=== PATIENT | female | born 2000 | race Caucasian/White ===

== ENCOUNTER 2024-09-08 09:23 | Outpatient (CLI) | payer BC, SELFPAY | END 2024-09-08 09:24 | disposition home or self-care (01) | PROVIDERS: Visit Provider Nurse Practitioner Family | DX: N30.00 Acute cystitis without hematuria (principal) | CPT/HCPCS: 87086 ==

== ENCOUNTER 2024-11-04 17:29 | Outpatient (CLI) | payer BC, SELFPAY | END 2024-11-04 17:30 | disposition home or self-care (01) | LOC: NFLDREF 11-09 02:05 | DX: R30.0 Dysuria (principal) | CPT/HCPCS: 87086 ==

== ENCOUNTER 2024-11-05 10:58 | Emergency (ER) | payer BC, SELFPAY ==
[2024-11-05 11:13] VITALS: BP 118/76; PULSE 99; RESP 16; TEMP 36.7; O2SAT 100; BMI 21.1
--- NOTE | 2024-11-05 11:35 | ED_ITS ---
HPI - General Adult General Date Seen: 11/05/24 Chief complaint: Urogenital Problems, Female Stated complaint: UTI symptoms Time Seen by Provider: 11/05/24 11:01 History of Present Illness HPI narrative: Patient is 24-year-old generally healthy young woman here with dysuria. She notes that she has had very frequent episodes of dysuria and bladder spasms or tingling for a number of years. Over the last year alone she estimates she has had 10-15 episodes. She has been on antibiotics many times, she usually uses virtual visits to obtain antibiotics. Yesterday, she decided that she was tired of being on antibiotics so she went into Urgent Care. Her urinalysis was negative. She also recently went to see her primary care doctor to discuss these symptoms, and her primary care doctor thought it was perhaps interstitial cystitis, so she had done some dietary changes, had eliminated caffeine, alcohol, but really did not notice any change in her symptoms. As her urine yesterday was unremarkable, no medications were prescribed aside from recommendations to use azo. She has ongoing symptoms today. She does note that these symptoms started in the afternoon on a day when she had intercourse. She has had 1 sexual partner, male, and does not have any concerns about exposures to STIs. She has been tested previously for bacterial vaginosis and yeast although she does not believe she has had any test for that in the past year. She does not believe that the symptoms she has had more recently are consistent with bacterial vaginosis or yeast. She has not had any discharge. She has not had any abdominal pain aside from these bladder spasms. She has not had fevers or systemic symptoms. She does believe that over the past several months, the symptoms have coincided with the onset of her period, and she is wondering if they may be have to do with her hormones, she was wondering if her estrogen levels could be tested today. She does live here locally although her health care is through [facility] in [place]. She has had a couple of normal Pap smears since age 22. Related Data Home Medications ?Medication ?Instructions ?Recorded ?Confirmed levonorgestrel 0.15 mg-ethinyl 1 tab PO QDAY 09/08/24 11/04/24 estradiol 0.03 mg tablet (Altavera (28)) Previous Rx's ?Medication ?Instructions ?Recorded nitrofurantoin macrocrystal 50 mg 50 mg PO Q24H PRN #20 caps 11/05/24 capsule Allergies Allergy/AdvReac Type Severity Reaction Status Date / Time nitrofurantoin Allergy Rash Verified 11/04/24 17:09 Review of Systems Status of ROS: Reports: 6 or more systems reviewed and unremarkable except as noted in History and below Exam Narrative: Exam Narrative: Vital signs reviewed In general, alert, well-appearing woman. Abdomen: Soft nontender. Pelvic: Deferred. Skin: Warm dry well perfused. Const: Vital Signs, click to edit/add: Vital Signs - 24 hr 11/05/24 11:13 Temperature 98.0 F Pulse Rate [Pulse Oximeter] 99 Respiratory Rate 16 Blood Pressure [Ri ght Upper Arm] 118/76 Pulse Oximetry 100 Oxygen Delivery Me thod Room Air Course Course ED Course: For today, will obtain a UA and make sure it does not look significantly worse than yesterday. Will also obtain a vaginitis panel. Reviewed with her that hormonal testing is not something we can do in the ER, and honestly is unlikely to be of any significant benefit. Interstitial cystitis would certainly be on the differential although with the cyclical nature that she is describing perhaps a little bit less likely. I think she would benefit at this point from follow-up with [facility]. Urinalysis shows 5-10 white blood cells today, up to 2 yesterday. As such, with ongoing symptoms I think it is reasonable to treat her today. Her vaginitis swab is negative. She has had Macrobid multiple times in the past, says at 1 time previously she had had hives, but has had it since then without difficulty. I am going to prescribe Macrobid for treatment today and also going to give her nitrofurantoin 50 mg tablets to use after intercourse as a trial to see if that improves her symptoms. I have also recommended woman's health follow-up for her for further evaluation if this does not help. Return any time for worsening symptoms such as flank pain, fevers, vomiting etc.. Vital Signs Vital signs: Initial Vital Signs Temperature 98.0 F 11/05/24 11:13 Temperature Source Temporal Artery Scan 11/05/24 11:13 Pulse Rate 99 11/05/24 11:13 Respiratory Rate 16 11/05/24 11:13 Blood Pressure 118/76 11/05/24 11:13 Blood Pressure Mean 90 11/05/24 11:13 Blood Pressure Position Sitting 11/05/24 11:13 Pulse Oximetry 100 11/05/24 11:13 Oxygen Delivery Method Room Air 11/05/24 11:13 Vital Signs Temperature 98.0 F 11/05/24 11:13 Pulse Rate 99 11/05/24 11:13 Respiratory Rate 16 11/05/24 11:13 Blood Pressure 118/76 11/05/24 11:13 Pulse Oximetry 100 11/05/24 11:13 Oxygen Delivery Method Room Air 11/05/24 11:13 Temperature 98.0 F 11/05/24 11:13 Pulse Rate 99 11/05/24 11:13 Respiratory Rate 16 11/05/24 11:13 Blood Pressure 118/76 11/05/24 11:13 Pulse Oximetry 100 11/05/24 11:13 Oxygen Delivery Method Room Air 11/05/24 11:13 Medical Decision Making Lab Data Labs: Lab Results 11/05/24 11/05/24 11/05/24 Range/Units 11:33 11:40 11:45 Urine Color Yellow (Yellow) Urine Appearance Clear (Clear) Urine pH 7.0 (5.0-8.5) Ur Specific Shirley 1.010 (1.000-1.030) Urine Protein Negative (Negative) Urine Glucose (UA) Negative (Negative) Urine Ketones Negative (Negative) Urine Blood Trace-intact A (Negative) Urine Nitrite Negative (Negative) Urine Bilirubin Negative (Negative) Urine Urobilinogen 0.2 (0.2-1.0) Ur Leukocyte Esterase 1+ A (Negative) Urine RBC 0-2 (0-2) Urine WBC 5-10 A (0-5) Ur Squamous Epith Cells Few (None-Few) Urine Bacteria Few A (None) Vaginal Trichomonas No Trichomonas Seen (None Seen) Vaginal Yeast No Yeast Seen (None Seen) Vaginal Clue Cells No Clue Cells Seen (None Seen) Vaginal Bacterial Vaginosis Cancelled Vaginal Judy species Cancelled Vag C. glabrata/krusei Cancelled Vag T. vaginalis Cancelled Discharge Plan Discharge Clinical Impression: Urinary tract infection Patient Disposition: Home, Self-Care Instructions: Urinary Tract Infection in Women (ED) Additional Instructions: For now, I have prescribed an antibiotic, you do have more white blood cells in your urinalysis today than you did yesterday. I have also prescribed nitrofurantoin, 50 mg. This is a lower dose than we use for treatment of urinary tract infections. I would like you to try taking 1 of these after intercourse for the next month or so, to see if this lowers the frequency of these episodes of urinary symptoms. I would also recommend that you make an appointment with [facility] in [place] so that you can follow-up the symptoms with them as well. If you worsen rather than improve, return to the emergency department. Your vaginal swab was negative, there is no evidence of yeast or bacterial vaginosis. Prescriptions: New nitrofurantoin macrocrystal 50 mg capsule 50 mg PO Q24H PRNQty: 20 0RF Rx Instructions: must administer with a meal/food No Action levonorgestrel-ethinyl estrad [Altavera (28)] 0.15-0.03 mg tablet 1 tab PO QDAY Follow Up/Referrals: Provider,Not a Local [Primary Care Provider] - Stand Alone Forms: Volumental Info Instructions
--- OUTSIDE RECORDS SUMMARY | 2024-11-05 11:46 | XMS_ITS | Encounter Summary ---
Author Organization [facility] Address [address] [place] [id number] Care Team Providers Care Folder Machine Adjuster Name Role Phone None Reported, Pcp Primary Care Provider Unavail able Encounter Details Date Type Department Care Team (Late st Contact Info) Description 10/06/2024 9:10 AM CDT E-Visit [facility] [address] [place] [phone] Mily Canales, LABORER PLUMBING, C.N.P. [address] [place] [phone] Express Care Online for Bladder Infection (female anatomy, age 12-65 years) Social History Tobacco Use Types Packs/Day Years Used Date Smoking Tobacco: Never Smokeless Tobacco: Never Alcohol Use Standard Drinks/Week Comments Yes 3 (1 standard drink = 0.6 oz pur e alcohol) [facility] Utilities Answer Date Recorded In the past 12 months has [facility] [employer], [place], oil, or water [employer] threatened to shut off services in your home? No 04/17/2024 Humiliation, Afraid, Rape, and Kick questionnair e Answer Date Recorded Within the last year, have y ou been afraid of your partner or ex-partner? No 07/04/2020 Within the last year, have y ou been humiliated or emotionally abused in other ways by your partner or ex-partner? No Within the last year, have y ou been kicked, hit, slapped, or otherwise physically hurt by your partner or ex-partner? No 07/04/2020 Within the last year, have y ou been raped or forced to have any kind of sexual activity by your partner or ex-partner? No 07/04/2020 Social Connection and Isolation Panel [NHANES] A nswer Date Recorded In a typical week, how many times do you talk on the phone with family, friends, or neighbors? Twice a week 07/04/2020 How often do you get togethe r with friends or relatives? Never 07/04/2020 How often do you attend denominational or christianity serv ices? Patient declined 07/04/2020 Do you belong to any clubs o r organizations such as denominational groups, unions, fraternal or athletic groups, or school groups? No 07/04/2020 How often do you attend meet ings of the clubs or organizations you belong to? Never 07/04/2020 Are you , , di vorced, , never , or living with a partner? Never 07/04/2020 Overall Financial Resource Strain (CARDIA) Answe r Date Recorded How hard is it for you to pa y for the very basics like food, housing, medical care, and heating? Not hard at all 07/04/2020 PHQ-2 Answer Date Recorded PHQ-2 Score 0 07/23/2021 [facility] of Occupat ional Health - Occupational Stress Questionnaire Answer Date Recorded Do you feel stress - tense, restless, nervous, or anxious, or unable to sleep at night because your mind is troubled all the time - these days? To some extent 07/04/2020 Exercise Vital Sign Answer Date Recorde d On average, how many days pe r week do you engage in moderate to strenuous exercise (like a brisk walk)? 3 days 04/17/2024 On average, how many minutes do you engage in exercise at this level? 50 min 04/17/2024 Hunger Vital Sign Answer Date Recorded Within the past 12 months, y ou worried that your food would run out before you got the money to buy more. Never true 04/17/20 24 Within the past 12 months, t he food you bought just didn't last and you didn't have money to get more. Never true 04/17/2024 PRAPARE - Transportation Answer Date Re corded In the past 12 months, has l ack of transportation kept you from medical appointments or from getting medications? No 03/21 In the past 12 months, has l ack of transportation kept you from meetings, work, or from getting things needed for daily living? No 04/17/2024 Nutrition Answer Date Recorded On average, how many serving s of fruits and vegetables do you eat per day (serving size is equal to 1 cup or approximately the size of a tennis ball)? 0-2 04/17/2024 Dental Answer Date Recorded Dental: Regular Dentist Yes 04/17/20 24 Employment Answer Date Recorded Employment status Employed and actively working without restrictions 04/17/2024 Housing Stability Answer Date Recorded What is your living situation today? I have a [facility] place to live 04/17/2024 Education Answer Date Recorded What is the highest level of school you have completed or the highest degree you have received? 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 [address] [place] [phone] 12/01/2024 8:30 AM CDT Clinical Support Department of Physical Medicine and Rehabilitation in [place], [place] [address] [place] [phone] Lamont Rachel, P.A.-CQuique [address] [place] [address] Hazel Recio, P.TQuique [address] [place] [phone] 01/16/2025 9:30 AM CDT Clinical Support Department of Sports Medicine in [place], [place] [address] [place] [address] Carlos Eduardo Valencia M.D. [address] [place] [phone] Elina Chanel P.T., D.P.T. [address] [place] [phone] documented as of this encounter Visit Diagnoses Diagnosis Acute Cystitis Without Hematuria- Primary documented in this encounter Care Teams Folder Machine Adjuster Relationship Specialty Start Date End Date None Reported, Pcp PCP - General Family Medicine 02/05/23 documented as of this encounter
--- OUTSIDE RECORDS SUMMARY | 2024-11-05 11:46 | XMS_ITS | Encounter Summary ---
Author Organization [facility] Address [address] [place] [address] Care Team Providers Care Conductor Sleeping Car Name Role Phone None Reported, Pcp Primary Care Provider Unavail able Reason for Visit * Physical Therapy (Routine) - Authorized Specialty Diagnoses / Procedures Referred By Contac t Referred To Contact Diagnoses Disruption Anterior Cruciate Ligament Initial Left Pain Knee Left Procedures PT Ongoing treatment Lamont Rachel, P.A.-C. [address] [place] [phone] Phone: tel: fax: [facility] Region Referral ID Status Reason Start Date Expiration Date V isits Requested Visits Authorized [id number] Authorized 07/18/2024 07/19/2025 15 15 Encounter Details Date Type Department Care Team (Latest Contact Info) Description 10/31/2024 8:30 AM CDT Clinical Support Department of Physical Medicine and Rehabilitation in [address] [place] [phone] Lamont Rachel, P.A.-C. [address] [place] [phone] Hazel Recio P.TQuique [address] [place] [phone] Disruption Anterior Cruciate Ligament Initial Left; Pain Knee Left Social History Tobacco Use Types Packs/Day Years Used Date Smoking Tobacco: Never Smokeless Tobacco: Never Alcohol Use Standard Drinks/Week Comments Yes 3 (1 standard drink = 0.6 oz pur e alcohol) [facility] Utilities Answer Date Recorded In the past 12 months has th e electric, gas, oil, or water company threatened to shut off services in your [...] Never 07/04/2020 How often do you attend baptism or druze serv ices? Patient declined 07/04/2020 Do you belong to any clubs o r organizations such as baptism groups, unions, fraternal or athletic groups, or [...] Answer Date Recorded PHQ-2 Score 0 07/23/2021 [facility] [place] of Occupat ional Health - Occupational Stress [...] Date Recorded Dental: Regular Dentist Yes 04/17/20 Employment Answer Date Recorded Employment status Employed and actively working without restrictions 04/17/2024 Housing Stability Answer Date Recorded What is your living situation today? I have a [facility] place to live 04/17/2024 Education Answer Date Recorded What is the highest level of school you have completed or the highest degree you have received? 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 - 10/31/2024 8:30 AM CDT Physical Therapy Outpatient Treatment Note SUBJECTIVE Patient's Name: Jessika Ambrocio Referring Provider: Lamont Rachel P.A.-C. Visit Diagnosis: 1. Disruption Anterior Cruciate Ligament Initial Left 2. Pain Knee Left Payor: [facility] / Plan: [employer] [facility] [employer] / Product Type: HMO / No data recorded Epic Visit Count: 8 Patient comments: Patient reports having no L knee pain. Patient states she has been going to the gym on a regular basis; tried jogging but did not feel comfortable so has been doing more walking andtrying to increase her speed as able. OBJECTIVE Pain: 0/10 Focus on Therapeutic Outcomes (FOTO) Intake Raw (Risk Adjusted) FOTO Discharge Prediction Current Scores Functional Status Score - FSS ( ) Interpretation of FSS - Stage ( ) Minimal Detectable Change Minimal Clinically Important Improvement Points of Change in FSS Episode Visit # 1 Episode Duration (days) 1 Observation/Inspection: appears to be in no apparent distress Mobility/Transfers: Independent with all transfers Gait/Stairs: nonantalgic gait Range of Motion: ROM - Upper Extremity Screen: Addressed, no concerns noted ROM - Lower Extremity Screen: Impaired left L knee AROM 0- -2-130 degrees Strength:Strength - Upper Extremity Screen: Addressed, no concerns noted Strength - Lower Extremity Screen: Impaired left Left Right Hip Flexion: 4/5 5/5 Hip Extension: 4/5 5/5 Hip Abduction: 4/5 5/5 Hip Adduction: 5/5 5/5 Hip External Rotation: 4/5 5/5 Left Right Knee Flexion: 4/5 5/5 Knee Extension: 4/5 5/5 Joint Mobility: good mobility in L knee Ortho Exam TREATMENT Treatment today consisted of: Therapeutic Exercise: Therapeutic Exercise: Performed with the intent to improve strength and endurance, range of motion, flexibility, joint mobility, joint stability, and/or reduce edema/lymphedema.Therapist is present, providing one-on-one verbal and tactile cues for correct completion of exercises, facilitation of appropriate muscle activation/ recruitment and patient safety. Performed: Exercises Single leg deadlift using 10# dumbbell x 3 sets of 15 Single leg partial squat on 4 step x 15; with verbal cues not to allow L knee to collapse medially Lunge with retro slide x 15 Single leg split squat x 15 Therapeutic Activities: Performed with the intent to improve functional performance in daily activities, work activities, and/or sports / recreational activities. Therapist is present, providing one-on-one verbal and tactile cues for correct completion of activities and patient safety. Performed and instructed in: Hopping forward and backward x 30 sec x 2 Hopping side to side x 30 sec x 2 Straight line hopping both legs Box jumps onto 4 step x 15 Bounding; verbal cues for equal weightbearing; patient to work on continuous flow from leg to leg versus stopping between each Home Exercise Program/Education: as above Assessment Clinical Impression: Patient presents to physical therapy with signs and symptoms consistent with s/p L knee ACL and meniscus repair. Impairments: impaired ROM, impaired strength, impaired balance, edema Functional deficits: standing, walking, dressing/grooming, daily and work activities Patient has been able to increase her time at the gym to work on improving strength. Patient has not been able to progress to jogging due to not feeling comfortable with it. Patient able to progress to double leg hopping/jumping. Patient needs continues work on strength and balance to be able to resume normal daily activities. Functional Goals and Timeframes: PT Goal #1: Patient will be independent with home exercise program and self-care PT Goal #1 to be achieved by: 10/16/24 PT Goal #1 Status: Progressing PT Goal #2: Patient will achieve 0-90 degrees left knee range of motion to be able to progress ambulation PT Goal #2 to be achieved by: 09/01/24 PT Goal #2 Status: Achieved PT Goal #3: Patient will have improved left lower extremity strength to be able to decrease use of knee immobilizer PT Goal #3 to be achieved by: 09/01/24 PT Goal #3 Status: Achieved PT Goal #4: Patient will be able to ambulate with normal gait mechanics without increased pain or limitation PT Goal #4 to be achieved by: 10/16/24 PT Goal #4 Status: Achieved Plan Will follow-up with patient in 4 weeks. Patient has sports medicine follow-up on 11/22/24. Treatment Plan: Plan: Plan of care initiated Start of Plan of Care: 07/18/2024 Number of Visits:12 visits PT Duration: 90 days PT Frequency: Treatment interventions may include: Treatment/Interventions: Therapeutic exercise, Therapeutic functional activity, Neuromuscular re-education, Manual therapy, Gait training, Therapeutic modalities as needed, Self-care/home management Plan for next session: strengthening; progress per protocol Time Spent with Patient Therapeutic Interventions Therapeutic Activity (min): 13 min Therapeutic Exercise (min): 10 min Time Tracking Total Timed Units (min): 23 min Total Treatment Time (min): 23 min documented in this encounter Plan of Treatment Upcoming Encounters Date Type Department Care Team (Late st Contact Info) Description 11/07/2024 9:20 AM CDT Appointment Department of Laboratory Medicine in [place], [place] [address] [place] [phone] Monica Recio, AMRIT, C.N.P. [address] [phone] 12/01/2024 8:30 AM CDT Clinical Support Department of Physical Medicine and Rehabilitation in [address] [place] [phone] Lamont Rachel, PQuiqueAQuique-CQuique [address] [place] [phone] Hazel Recio P.TQuique [address] [place] [phone] 01/16/2025 9:30 AM CDT Clinical Support Department of Sports Medicine in [place], [place] [address] [place] [phone] Carlos Eduardo Valencia M.D. [address] [place] [phone] Elina Chanel P.T., D.P.T. [address] [place] [phone] documented as of this encounter Visit Diagnoses Diagnosis Disruption Anterior Cruciate Ligament Initial Left Pain Knee Left documented in this encounter Care Teams Conductor Sleeping Car Relationship Specialty Start Date End Date None Reported, Pcp PCP - General Family Medicine 02/05/23 documented as of this encounter
--- OUTSIDE RECORDS SUMMARY | 2024-11-05 11:46 | XMS_ITS | Encounter Summary ---
Author Organization [facility] Address [address] [place] [address] Care Team Providers Care Stave Log Ripsaw Operator Name Role Phone None Reported, Pcp Primary Care Provider Unavail able Reason for Referral * Outpatient (Routine) - Incomplete Specialty Diagnoses / Procedures Referred By Contterry t Referred To Contact Diagnoses Cystitis Interstitial Procedures Post void residual Monica Recio APRN, C.N.P. [address] [place] [address] Phone: tel: fax: Referral ID Status Reason Start Date Expiration Date V isits Requested Visits Authorized [id number] Incomplete 10/14/2024 01/14/2026 1 1 Reason for Visit * Reason Comments Consult Encounter Details Date Type Department Care Team (Latest Contact Info) Description 10/14/2024 9:00 AM CDT Comprehensive Visit Department of Obstetrics and Gynecology in [address] [phone] Monica Recio APRN, C.N.P. [address] [place] [phone] Cystitis Interstitial (Primary Dx) Discharge Disposition: Home or Self Care Social History Tobacco Use Types Packs/Day Years Used Date Smoking Tobacco: Never Smokeless Tobacco: Never Tobacco Cessation:Counseling Given: Not Answered Alcohol Use Standard Drinks/Week Comments Yes 3 (1 standard drink = 0.6 oz pur e alcohol) [facility] Utilities Answer Date Recorded In the past 12 months has e electric, gas, oil, or water company [...] Never 07/04/2020 How often do you attend religion or pentecostal serv ices? Patient declined 07/04/2020 Do you belong to any clubs o r organizations such as religion groups, unions, fraternal or athletic groups, or [...] Answer Date Recorded PHQ-2 Score 0 07/23/2021 [facility] [place] of Occupat ional Health - Occupational Stress [...] your living situation today? I have a [facility] place to live 04/17/2024 Education Answer Date Recorded What is the highest level of school you have completed or the highest degree you have received? GED or equivalent Comments Unknown Sex and Gender Information Value Date Recorded Sex Assigned at Female 04/17/2024 7:49 PM CDT Legal Sex Female 6:14 PM INSURANCE CLAIMS SPECIALIST Gender Identity Female 07/04/2020 7:44 AM INSURANCE CLAIMS SPECIALIST Sexual Orientation Straight 04/17/2024 7: 49 PM CDT documented as of this encounter Last Filed Vital Signs Vital Sign Reading Time Taken Comments Blood Pressure 110/73 10/14/2024 8:46 AM CDT Pulse 76 10/14/2024 8:46 AM CDT Temperature - - Respiratory Rate - - Oxygen Saturation - - Inhaled Oxygen Concentration - - Weight 68.6 kg (151 lb 3.8 oz) 10/14/2024 8:46 A M CDT Height 181.9 cm (5' 11.61) 10/14/2024 8:46 AM C DT Body Mass Index 20.73 10/14/2024 8:46 AM CDT documented in this encounter Patient Instructions * Patient Instructions* Monica Recio APRN, C.N.P. - 10/14/2024 9:00 AM CDT Images from the original note were not included. Last tip: If you just have to eat/drink something you know will cause a problem use ???Prelief?? . Prelief is an over the counter neutralizer that if taken 30 minutes before eating can help to decrease the occurrence of pain. Diet alone will not solve the problem and there is no known cure for Interstitial Cystitis. Diet along with the other therapies and interventions can offer significant relief to those suffering from the pain and bladder symptoms associated with Interstitial cystitis documented in this encounter Progress Notes * Monica Recio APRN, C.N.P. - 10/14/2024 9:00 AM CDT SUBJECTIVE Chief Complaint Patient presents with Consult HISTORY OF PRESENT ILLNESS Jessika is a 24 y.o. . Patient's last menstrual period was 10/01/2024 (exact date). She presents with concerns surrounding Consult. Primary concern is surrounding bladder function. She notes thatcoby was diagnosed with a urinary tract infection at the age of 5. She did not have any problems with urinary tract infections then until she started sexual activity. She notes that she has had 1 lifetime partner, and they have been together since she was 18. She does experience frequent symptoms ofurinary tract infection the next morning after having sex. Notes that she will start to have pain with urination, pressure in her bladder, a stinging feeling at the end of urination common bladder spasms. Historically has been evaluated for UTI, and is not aware of any positive cultures. When I review her [place] records, I do not appreciate any positive cultures in the last 5 years. She does take azo and finds that to be helpful until she is able to start the antibiotics. She is typically treatedwith antibiotics based on symptoms, and notes that the symptoms significantly improve, but only temporarily. She often experiences exacerbation of symptoms again after completion of antibiotics, and notes that it often takes several rounds of antibiotics before her symptoms completely resolve. Sometimes, she even feels a little feverish when she has the symptoms. Most recently on August 30, she developed symptoms of UTI. She completed an online virtual visit and was given antibiotics. Upon completion, her symptoms improved but then returned. She had an urgent care visit in [place] shortly thereafter and had a culture performed which came back negative. She was nonetheless given treatment with antibiotics. She finished her antibiotics 5 days ago. Overall she feels good right now but does admit to some random burning and spasm sensations in her bladder. She has found that if she eliminates caffeine, specifically coffee and bubble color, her symptoms seem to improve. She has noticed the caffeine makes her symptoms worse. She notes that sometimes when her symptoms or at the worse she will experience sets severe urgency that she will experience urge incontinence and leakage without her control. She is utilizing the control pill for control. She has no concerns surrounding her menses. She started her control pill at age 17. Notes that cycles were very manageable even beforeinitiating the control pill. No significant pain or heavy bleeding. She also denies any bowel concerns or problems. REVIEW OF SYSTEMS Genitourinary: Positive for incontinence, pain with urination, urgency and frequent urination. The following systems were negative: Constitutional, Skin, Eyes, ENT, Respiratory, Cardiovascular, Gastrointestinal, Hematologic, Musculoskeletal, Neurological, Psychiatric The patient's allergies, current medications, problem list, social history and family history were reviewed and updated as appropriate. OBJECTIVE BP 110/73 Pulse 76 Ht 181.9 cm Wt 68.6 kg LMP 10/01/2024 (Exact Date) BMI 20.73 kg/m?? POSTVOID RESIDUAL After voiding, she was scanned for a postvoid residual of 7 mL today. PHYSICAL EXAM General: She is a well-appearing female, in no acute distress. Mental: Alert and oriented x3. Affect pleasant. Mood happy. SKIN: Warm, dry and pink. No rashes, lesions or bruising. HEENT: Vision and hearing grossly intact. Lymph Nodes: No inguinal lymphadenopathy. No masses or tenderness. Abdomen: Soft, nontender, nondistended. No masses palpable. Pelvis: External genitalia appears healthy and normal. BUS is negative. Negative cough stress test.Urethral hypermobility is not present. Prolapse is not apparent at rest. Pelvic floor muscle strength is moderate. No pelvic floor tension myalgia noted. Upon bimanual exam there is no cervical motion tenderness, uterus is small mobile and nontender. Adnexa is not palpable, and is without masses ortenderness. No pain with palpation of bladder. Environmental Monitoring Technician: Shira Hernandes LPN ASSESSMENT / PLAN #1 Cystitis Interstitial Overview: She was provided a handout from [employer] on IC. Also provided handout on IC Smart Diet and Prelief.We did place a standing order for UA/UC and will plan to only treat with antibiotics if positive cx. I will portal with results. No PFTM on exam. Will request instillations if desired/needed. Will f/u as needed. Orders: - Bacterial Culture, Aerobic + Susceptibility, Urine; Standing - Urinalysis, with Microscopic: Urine, Midstream; Standing All questions have been answered and those present are in agreement with this plan. Monica Recio APRN, C.N.P. Patient Education Ready to learn, no apparent learning barriers were identified; learning preferences include listening. Explained diagnosis and treatment plan; patient expressed understanding of the content. documented in this encounter Procedure Notes * Monica Recio APRN, C.N.P. - 10/14/2024 9:00 AM CDTAssociated Order(s): Post void residual Post-Procedure Diagnose(s): Cystitis Interstitial Post void residual Performed by: Monica Recio APRN, C.N.P. Authorized by: Monica Recio APRN, C.N.P. Care team members present 1. Shira Hernandes L.P.N. PROCEDURE DETAILS Postvoid residual obtained via ultrasound per Bladder Scanning Procedural Guideline. After voiding,she was scanned for a postvoid residual of 7 mL today. CONSENT Consent obtained: verbal Consent given by: patient The benefits, risks and alternatives to the procedure and the potential need for sedation or anesthesia as well as the names, roles, and responsibilities of healthcare team members performing significant interventional tasks were discussed with the patient and/or decision maker. UNIVERSAL PROTOCOL All relevant documentation and testing were reviewed and available. All required blood products, implants, devices and or special equipment were made available as applicable. Pre-procedure verification was conducted and the correct site was marked if required. A fire risk and smoke assessment were done as applicable. The procedural time-out to verify correct patient, correct side/site, and procedure was conducted prior to performing the procedure and confirmed in a procedural pause. PRE-PROCEDURE DETAILS Procedure purpose: diagnostic Indications: IC symptoms SEDATION / ANESTHESIA Anesthesia method: none POST-PROCEDURE DETAILS Procedure completed successfully: yes Complications: no apparent complications SASH INSTALLER documented in this encounter Plan of Treatment Upcoming Encounters Date Type Department Care Team (Late st Contact Info) Description 11/07/2024 9:20 AM CDT Appointment Department of Laboratory Medicine in [place], [place] [address] [place] [phone] Monica Recio APRN, C.N.P. [address] [phone] 12/01/2024 8:30 AM CDT Clinical Support Department of Physical Medicine and Rehabilitation in [place], [place] [address] [place] [address] Lamont Rachel, P.A.-CQuique [address] [place] [address] Hazel Recio, P.TQuique [address] [place] [phone] 01/16/2025 9:30 AM CDT Clinical Support Department of Sports Medicine in [place], [place] [address] [place] [phone] Carlos Eduardo Valencia M.D. [address] [place] [phone] Elina Chanel P.T., Martha.PSaurabh [address] [place] [phone] Scheduled Orders Name Type Priority Associated Diagnoses Orde r Schedule Bacterial Culture, Aerobic + Susceptibility, Urine Microbiology Routine Cystitis Interstitial PRN for 12 Occurrences starting 10/14/2024 until 01/14/2026 Urinalysis, with Microscopic: Urine, Midstream Lab Routine Cystitis Interstitial PRN for 12 Occurrences starting 10/14/2024 until 01/14/2026 documented as of this encounter Procedures Procedure Name Priority Date/Time Associated Diagnosis Comments POST VOID RESIDUAL Routine 10/14/2024 9: 00 AM CDT Cystitis Interstitial documented in this encounter Results * POST VOID RESIDUAL (10/14/2024 9:00 AM CDT) Narrative Monica Recio APRN, C.N.P. - 10/14/2024 9:00 AM CDT Monica Recio APRN, C.N.P. 10/14/2024 11:33 AM Post void residual Performed by: Monica Recio APRN, C.N.P. Authorized by: Monica Recio APRN, C.N.P. Care team members present 1. Shira Hernandes L.P.N. PROCEDURE DETAILS Postvoid residual obtained via ultrasound per Bladder Scanning Procedural Guideline. After voiding, she was scanned for a postvoid residual of 7 mL today. CONSENT Consent obtained: verbal Consent given by: patient The benefits, risks and alternatives to the procedure and the potential need for sedation or anesthesia as well as the names, roles, and responsibilities of healthcare team members performing significant interventional tasks were discussed with the patient and/or decision maker. UNIVERSAL PROTOCOL All relevant documentation and testing were reviewed and available. All required blood products, implants, devices and or special equipment were made available as applicable. Pre-procedure verification was conducted and the correct site was marked if required. A fire risk and smoke assessment were done as applicable. The procedural time-out to verify correct patient, correct side/site, and procedure was conducted prior to performing the procedure and confirmed in a procedural pause. PRE-PROCEDURE DETAILS Procedure purpose: diagnostic Indications: IC symptoms SEDATION / ANESTHESIA Anesthesia method: none POST-PROCEDURE DETAILS Procedure completed successfully: yes Complications: no apparent complications us Monica Recio APRN, C.N.P. PROCEDURE/MINOR S URGICAL ORDERABLES Final Result documented in this encounter Visit Diagnoses Diagnosis Cystitis Interstitial- Primary documented in this encounter Care Teams Stave Log Ripsaw Operator Relationship Specialty Start Date End Date None Reported, Pcp PCP - General Family Medicine 02/05/23 documented as of this encounter
--- OUTSIDE RECORDS SUMMARY | 2024-11-05 11:46 | XMS_ITS | Encounter Summary ---
Author Organization [facility] Address [address] [place] [address] Care Team Providers Care Construction Inspector Name Role Phone None Reported, Pcp Primary Care Provider Unavail able Reason for Visit * Physical Therapy (Routine) - Authorized Specialty Diagnoses / Procedures Referred By Contac t Referred To Contact Diagnoses Disruption Anterior Cruciate Ligament Initial Left Pain Knee Left Procedures PT Ongoing treatment Lamont Rachel, P.A.-C. [address] [place] [phone] Phone: tel: fax: [facility] Region Referral ID Status Reason Start Date Expiration Date V isits Requested Visits Authorized [id number] Authorized 07/18/2024 07/19/2025 15 15 Encounter Details Date Type Department Care Team (Latest Contact Info) Description 10/03/2024 8:30 AM CDT Clinical Support Department of Physical Medicine and Rehabilitation in [address] [place] [phone] Lamont Rachel, P.A.-C. [address] [place] [phone] Hazel Recio P.TQuique [address] [place] [phone] Disruption Anterior Cruciate Ligament Initial Left; Pain Knee Left Social History Tobacco Use Types Packs/Day Years Used Date Smoking Tobacco: Never Smokeless Tobacco: Never Alcohol Use Standard Drinks/Week Comments Yes 3 (1 standard drink = 0.6 oz pur e alcohol) [facility] Utilities Answer Date Recorded In the [...] Never 07/04/2020 How often do you attend yazdanism or anabaptism serv ices? Patient declined 07/04/2020 Do you belong to any clubs o r organizations such as yazdanism groups, unions, fraternal or athletic groups, or [...] Answer Date Recorded PHQ-2 Score 0 07/23/2021 [facility] [place] of Occupat ional Health - Occupational Stress [...] your living situation today? I have a [facility] place to live 04/17/2024 Education Answer Date Recorded What is the highest level of school you have completed or the highest degree you have received? GED or equivalent Comments No Sex and Gender Information Value Date Recorded Sex Assigned at Female 04/17/2024 7:49 PM CDT Legal Sex Female 6:14 PM SORT LINE Gender Identity Female 07/04/2020 7:44 AM SORT LINE Sexual Orientation Straight 04/17/2024 7: 49 PM CDT documented as of this encounter Progress Notes * Hazel Recio, P.T. - 10/03/2024 8:30 AM CDT Physical Therapy Outpatient Treatment Note SUBJECTIVE Patient's Name: Jessika Ambrocio Referring Provider: Lamont Rachel P.A.-C. Visit Diagnosis: 1. Disruption Anterior Cruciate Ligament Initial Left 2. Pain Knee Left Payor: [employer] / Plan: [facility] [employer] / Product Type: HMO / No data recorded Epic Visit Count: 7 Patient comments: Patient reports having no L knee pain. Patient states she has not been compliant with HEP over the last 4-5 days due to being [place] the [place]. Patient reports she does have a gym membership and will now be able to start working out more regularly with basketball being done. OBJECTIVE Pain: 0/10 Focus on Therapeutic Outcomes [...] and patient safety. Performed: Exercises Single leg Bridge x 15; using 10# with fatigue Step up forward using 9 step x 15 Step down forward using 9 step x 15 Partial squat using 10# dumbbells x 3 sets of 15 Single leg deadlift using 10# dumbbell x 3 sets of 15 Single leg partial squat on 4 step x 15; with verbal cues not to allow L knee to collapse medially Lunge with retro slide x 15 with fatigue Also instructed patient in return to running program which patient will start on treadmill. Discussed with patient to do leg work on opposite days of cardio/running/balance Neuromuscular Re-education: Performed with the intent to facilitate re-education of balance, proprioception, posture, coordination, kinesthetic sense, and/or movement. Therapist is present, [id number]-[id number] verbal and tactile cues for correct completion of exercises, facilitation of appropriatemuscle activation/ recruitment and patient safety. Performed and instructed in: SLS, EC x 30 sec with LOB x 3 SLS, EO on foam pad x 30 sec with LOB x 4 Home Exercise Program/Education: as above Assessment Clinical Impression: Patient presents to physical therapy with signs and symptoms consistent with s/p L knee ACL and meniscus repair. 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 Patient needs continues work on strength and [...] Will follow-up with patient in 4 weeks. Treatment Plan: Plan: Plan of care initiated Start of Plan of Care: 07/18/2024 Number of Visits:12 visits PT Duration: 90 days PT Frequency: Treatment interventions may include: Treatment/Interventions: Therapeutic exercise, Therapeutic functional activity, Neuromuscular re-education, Manual therapy, Gait training, Therapeutic modalities as needed, Self-care/home management Plan for next session: strengthening; progress per protocol; hopping/jumping program Time Spent with Patient Therapeutic Interventions Neuromuscular Re-Education (min): 2 min Therapeutic Exercise (min): 28 min Time Tracking Total Timed Units (min): 30 min Total Treatment Time (min): 30 min documented in this encounter Plan of Treatment Upcoming Encounters Date Type Department Care Team (Late st Contact Info) Description 11/07/2024 9:20 AM CDT Appointment Department of Laboratory Medicine in [place], [place] [address] [place] [phone] Monica Recio, AMRIT, C.N.P. [address] [phone] 12/01/2024 8:30 AM CDT Clinical Support Department of Physical Medicine and Rehabilitation in [address] [facility] [place] [phone] Lamont Rachel, PQuiqueAQuique-CQuique [address] [place] [phone] Hazel Recio PQuiqueTQuique [address] [place] [phone] 01/16/2025 9:30 AM CDT Clinical Support Department of Sports Medicine in [place], [place] [address] [place] [phone] Carlos Eduardo Valencia M.D. [address] [place] [phone] Elina Chanel P.T., D.P.T. [address] [place] [phone] documented as of this encounter Visit Diagnoses Diagnosis Disruption Anterior Cruciate Ligament Initial Left Pain Knee Left documented in this encounter Care Teams Construction Inspector Relationship Specialty Start Date End Date None Reported, Pcp PCP - General Family Medicine 7/20/23 documented as of this encounter
[2024-11-05 11:47] LABS: Appearance Urine Clear (Clear); Bilirubin Urine Negative (Negative); Blood Urine Trace-intact (Negative); Color Urine Yellow (Yellow); Glucose Urine Negative (Negative); Ketones Urine Negative (Negative); Leukocyte Esterase Urine 1+ (Negative); Nitrite Urine Negative (Negative); Protein Urine Negative (Negative); Urobilinogen Urine 0.2 (0.2-1.0)
--- OUTSIDE RECORDS SUMMARY | 2024-11-05 11:47 | XMS_ITS | Clinical Summary ---
Author Organization [facility] Address [address] [place] [address] Care Team Providers Care Acting Section Chief Name Role Phone None Reported, Pcp Primary Care Provider Unavail able Source Comments Patient records contain information from all sites at [facility]. For routine questions regarding patient records, call [phone] during business hours, M-F 8:00 AM - 5:00 PM Central Time. Record requests for emergency care only can be directed to [phone] at any time.[facility] Allergies Active Allergy Reactions Criticality Noted Date Comments No Known Allergies Other (see comments) 014 NO KNOWN DRUG ALLERGIES Medications * This document contains information received from the source organization and may not represent a complete record from that organization. Altavera, 28, 0.15-0.03 mg per tablet take 1 tablet by mouth every day 84 tablet 4 024 Active gabapentin (Neurontin) 100 mg capsule Take 1 capsule (100 mg total) by mouth 2 (two) times a day for 5 days. Take post-op days 1-5 with Breakfast and Lunch. 10 capsule 06/27/20 24 8:11 AM SECURITY SYSTEM ENGINEER 024 2024 Discontinued methocarbamoL (Robaxin) 500 mg tablet Take 1 tablet (500 mg total) by mouth 3 (three) times a day for 14 days. Take post-op days 0-14 with Breakfast, Lunch, and Dinner. Take first dose the evening of surgery. 43 tablet 06/27/20 24 8:11 AM SECURITY SYSTEM ENGINEER 024 2024 Discontinued meloxicam (Mobic) 15 mg tablet Take 0.5 tablets (7.5 mg total) by mouth 2 (two) times a day for 9 days. Take by mouth twice daily with Breakfast and Lunch for post-op pain and swelling. Take medication for 9 days. Start post-op day 6. 9 tablet 06/27/20 24 8:11 AM SECURITY SYSTEM ENGINEER 2024 Discontinued aspirin 81 mg chewable tablet Chew 1 tablet (81 mg total) 2 (two) times a day. Take one tablet twice daily for 6 weeks to help minimize risk of blood clot. Once completed, resume the usual dose of aspirin your primary provider may recommend. 108 tablet 2024 Discontinued acetaminophen (TylenoL) 500 mg tablet Take 1 tablet (500 mg total) by mouth every 6 (six) hours. Take every 6 hours beginning the evening of surgery. After post op day 14, you may take Tylenol every 6 hours as needed for ongoing pain. 120 tablet 2024 Discontinued sennosides-docusa te sodium (Senna with Docusate Sodium) 8.6-50 mg per tablet Take 1 tablet by mouth daily as needed for constipation. 14 tablet 2024 Discontinued ondansetron ODT (Zofran-ODT) 4 mg disintegrating tablet Dissolve 1 tablet (4 mg total) in the mouth every 4 (four) hours as needed for nausea or vomiting. For postoperative nausea and vomiting. 12 tablet 06/27/20 24 8:11 AM SECURITY SYSTEM ENGINEER 2024 Discontinued nitrofurantoin monohydrate (Macrobid) 100 mg capsuleIndication s:Acute Cystitis Without Hematuria Take 1 capsule (100 mg total) by mouth 2 (two) times a day for 5 days. For urinary tract infection 10 capsule 2024 phenazopyridine (Pyridium) 200 mg tabletIndications :Acute Cystitis Without Hematuria Take 1 tablet (200 mg total) by mouth 3 (three) times a day for 2 days. For pain with urination 6 tablet 2024 cephalexin (Keflex) 500 mg capsule TAKE 1 CAPSULE ORAL EVERY TWELVE HOURS DIRECTED 2024 Discontinued sulfamethoxazole- trimethoprim (Bactrim DS) 800-160 mg per tablet Take 1 tablet by mouth 2 (two) times a day. 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 Also provided handout on IC Smart Diet and Prelief. We did place a standing order for UA/UC and will plan to only treat with antibiotics if positive cx. I will portal with results. No PFTM on exam. Will request instillations if desired/needed. Will f/u as needed. 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 Hazel Recio, P.T. Disruption Anterior Cruciate Ligament Initial Left; Pain Knee Left 10/14/2024 9:00 AM CDT Comprehensive Visit Department of Obstetrics and Gynecology in [address] [phone] Monica Reico APRN, C.N.P. Cystitis Interstitial (Primary Dx) Discharge Disposition: Home or Self Care 10/06/2024 9:10 AM CDT E-Visit [facility] [address] [place] [address] Mily Canales APRN, C.N.P. Express Care Online for Bladder Infection (female anatomy, age 12-65 years) 10/03/2024 8:30 AM CDT Clinical Support Department of Physical Medicine and Rehabilitation in [place] [address] [place] [address] Lamont Rachel P.A.-C. Johnson, Laurie J PQuiqueT. Disruption Anterior Cruciate Ligament Initial Left; Pain Knee Left 09/19/2024 8:30 AM SECURITY SYSTEM ENGINEER Clinical Support Department of Physical Medicine and Rehabilitation in [place] [address] [place] [address] Lamont Rachel P.A.-C. Johnson, Laurie J, P.T. Disruption Anterior Cruciate Ligament Initial Left; Pain Knee Left 09/02/2024 9:00 AM SECURITY SYSTEM ENGINEER Clinical Support Department of Physical Medicine and Rehabilitation in [place] [address] [place] [address] Lamont Rachel, Brielle Recio, Hazel Mar, P.T. Disruption Anterior Cruciate Ligament Initial Left; Pain Knee Left 08/24/2024 10:30 AM SECURITY SYSTEM ENGINEER Clinical Support Department of Sports Medicine in [address] [phone] Carlos Eduardo Valencia M.D. Anderson, Vanessa A, P.T., D.P.T. Disruption Anterior Cruciate Ligament Initial Left; Pain Knee Left 08/19/2024 8:30 AM SECURITY SYSTEM ENGINEER Clinical Support Department of Physical Medicine and Rehabilitation in [place] [address] [place] [address] Lamont Rachel P.A.-C. Johnson, Laurie J, P.T. Disruption Anterior Cruciate Ligament Initial Left; Pain Knee Left 08/12/2024 9:30 AM SECURITY SYSTEM ENGINEER Clinical Support Department of Physical Medicine and Rehabilitation in [place] [address] [place] [address] Lamont Rachel P.A.-C. Johnson, Laurie J, P.T. Disruption Anterior Cruciate Ligament Initial Left; Pain Knee Left from Last 3 Months Immunizations Immunization Administration Dates Next Due 4vHPV (discontinued) 10/31/2016,05/29/2016,02/21 DTaP (Infanrix, Tripedia) 02/04/2006,,2001,2000 DTaP / Hib 05/12/2002 H1N1 All Forms 09/03/2009,07/17/2009 HepB Pediatric/Adolescent 2001 HepB, Unspecified 2001,2001 Hib (HbOC) (discontinued) 2001 Hib, Unspecified 2001 IPV 02/04/2006, 2,2001,2000 Influenza, Injectable, Mdck, Preservative Free, Quadrivalent 04/15/2020 Influenza, Injectable, Quadrivalent 05/01/2015 Influenza, Unspecified 05/08/2016,2013,04/25/2013,2011,04/28/2011,05/22/2010,05/22/2009,1 ,05/25/2007,05/22/2006, 004,05/12/2003,06/14/2002,06/14/2002, MCV4 (Menactra)(Discontinued) 03/09/2019, 013 MMR 02/04/2006,05/12/2002 PCV7 (discontinued) 02/14/2003, 2,2001,2000 Tdap 06/22/2024,02/07/2013 TONNY 05/12/2002 influenza vaccine quad (FLUZONE/FLUARIX) (6 months and older)(PF) 05/06/2019 Family History Medical History Relation Name Comments No Known Problems Brother 1 No Known Problems Brother 2 No Known Problems Father Diabetes Grandfather 1 maternal Diabetes Grandfather 2 paternal Heart attack Grandfather 2 paternal Hypertension Grandmother 1 maternal Heart attack Grandmother 2 paternal No Known Problems Mother Relation Name Status Comments Brother 1 Alive Brother 2 Alive Father Alive Grandfather 1 maternal Grandfather 2 paternal Grandmother 1 maternal Grandmother 2 paternal Mother Alive Social History Tobacco Use Types Packs/Day Years Used Date Smoking Tobacco: Never Smokeless Tobacco: Never Tobacco Cessation:Counseling Given: Not Answered Alcohol Use Standard Drinks/Week Comments Yes 3 (1 standard drink = 0.6 oz pur e alcohol) [facility] Utilities Answer Date Recorded In the past [...] Never 07/04/2020 How often do you attend mormon or restorationist serv ices? Patient declined 07/04/2020 Do you belong to any clubs o r organizations such as mormon groups, unions, fraternal or athletic groups, or [...] Answer Date Recorded PHQ-2 Score 0 07/23/2021 [facility] of Occupat ional Health - Occupational Stress [...] your living situation today? I have a [facility] place to live 04/17/2024 Education Answer Date Recorded What is the highest level of school you have completed or the highest degree you have received? GED or equivalent Comments Unknown Sex and Gender Information Value Date Recorded Sex Assigned at Female 04/17/2024 7:49 PM CDT Legal Sex Female 6:14 PM SECURITY SYSTEM ENGINEER Gender Identity Female 07/04/2020 7:44 AM SECURITY SYSTEM ENGINEER Sexual Orientation Straight 04/17/2024 7: 49 PM CDT Last Filed Vital Signs Vital Sign Reading Time Taken Comments Blood Pressure 110/73 10/14/2024 8:46 AM CDT Pulse 76 10/14/2024 8:46 AM CDT Temperature 36.7 C (98 F) 07/11/2024 8:44 PM SECURITY SYSTEM ENGINEER Respiratory Rate 16 07/11/2024 8:44 PM SECURITY SYSTEM ENGINEER Oxygen Saturation 99% 07/11/2024 8:44 PM SECURITY SYSTEM ENGINEER Inhaled Oxygen Concentration - - Weight 68.6 kg (151 lb 3.8 oz) 10/14/2024 8:46 A M CDT Height 181.9 cm (5' 11.61) 10/14/2024 8:46 AM C DT Body Mass Index 20.73 10/14/2024 8:46 AM CDT Plan of Treatment Upcoming Encounters Date Type Department Care Team (Late st Contact Info) Description 11/07/2024 9:20 AM CDT Appointment Department of Laboratory Medicine in [place], [place] [address] [place] [address] Monica Recio, PACK PRESS OPERATOR, C.N.P. [address] [phone] 12/01/2024 8:30 AM CDT Clinical Support Department of Physical Medicine and Rehabilitation in [place] [address] [place] [address] Lamont Rachel, P.A.-C. [address] [place] [phone] Hazel Recio, P.TQuique [address] [place] [phone] 01/16/2025 9:30 AM CDT Clinical Support Department of Sports Medicine in [place], [place] [address] [place] [phone] Carlos Eduardo Valencia M.D. [address] [place] [phone] Elina Chanel P.T., D.P.T. [address] [place] [phone] Health Maintenance Due Date Last Done Comments HIV Screening 2001 Hepatitis C Screening 2001 Varicella Vaccines (2 of 2 - 2-dose childhood series) 2005 05/12/2002 COVID-19 Vaccine ( season) 2024 Influenza Vaccine (#1) 2024 , 05/06/2019, 05/08/2016, Additional history exists Depression Screening (Annual PHQ-2) 07/20/2024 Chlamydia and Gonorrhea Screening 06/22/2025 03/11/2022, 03/14/2019, 06/30/2017, Additional history exists Postponed from 03/11/2023 (Patient Refused) Cervical/Vaginal Cancer Screening 06/22/2027 06/22/2024, 06/22/2024, 03/11/2022 DTaP,Tdap,and Td Vaccines (8 - Td or Tdap) 06/22/2034 06/22/2024, 02/07/2013, 02/04/2006, Additional history exists Hepatitis B Vaccines Completed 2001, 2001, 2001 Pneumococcal vaccine (0-49 years) Aged Out 02/14/2003, 2001, 2001, Additional history exists No longer eligible based on patient's age to complete this topic IPV Vaccines Completed 02/04/2006, 07/21, 2001, Additional history exists HPV Vaccines Completed 10/31/2016, 05/20, 02/22/2016 Medical Devices Implanted Type Area Metal Weigher Device Identifier Shelf Expiration Date Model / Serial / Lot Sut Fbr Fbrw Crv 24d 2-0 1.5 - [id number] Implanted:Qty : 1 on 06/27/2024 by Carlos Eduardo Valencia M.D. at [facility] Hardware e.g. pins/screws/ rods Left: Knee Arthrex [id number] 09/16/2028 AR-4580-2 3 Sut Fbr Fbrw Crv 24d 2-0 1.5 - [id number] Implanted:Qty : 1 on 06/27/2024 by Carlos Eduardo Valencia M.D. at [facility] Hardware e.g. pins/screws/ rods Left: Knee Arthrex [id number] 09/16/2028 AR-4580-2 4 K23 Sut Fbr 2-0 Crv 1.5in - [id number] Implanted:Qty : 1 on 06/27/2024 by Carlos Eduardo Valenica M.D. at [facility] Hardware e.g. pins/screws/ rods Left: Knee Arthrex [id number] 08/19/2028 AR-4580R / / [id number] Anch Sut Fbr Dbl Ld Sft - [id number] Implanted:Qty : 1 on 06/27/2024 by Carlos Eduardo Valencia M.D. at [facility] Hardware e.g. pins/screws/ rods Left: Knee Arthrex [id number] 02/16/2029 AR-3740SP / / [id number] Scrw Int Ti Acl Pcl Bn 7x20 - [id number] Implanted:Qty : 1 on 06/27/2024 by Carlos Eduardo Valencia M.D. at [facility] Hardware e.g. pins/screws/ rods Left: Knee Arthrex 01/16/2029 AR-1370E / / [id number] Scrw Int Fst Acl Bioc 8x20 - [id number] Implanted:Qty : 1 on 06/27/2024 by Carlos Eduardo Valencia M.D. at [facility] Hardware e.g. pins/screws/ rods Left: Knee Arthrex [id number] 04/18/2028 AR-4020C- 08 / / [id number] Procedures Procedure Name Priority Date/Time Associated Diagnosis Comments POST VOID RESIDUAL Routine 10/14/2024 9: 00 AM CDT Cystitis Interstitial HPV WITH GENOTYPING, PCR, THINPREP Routine 06/22/2024 8:06 AM SECURITY SYSTEM ENGINEER CHLAMYDIA/GONORRHO EAE AMPLIFIED RNA Routine 03/11/2022 12:01 PM CDT Preventive Gynecological Exam from Last 3 Months or Most Recently Relevant to Health Maintenance Results * POST VOID RESIDUAL (10/14/2024 9:00 AM CDT) Narrative Monica Recio APRN, C.N.P. - 10/14/2024 9:00 AM CDT Monica Recio APRN, C.N.P. 10/14/2024 11:33 AM Post void residual Performed by: Monica Recio APRN C.N.P. Authorized by: Monica Recio APRN, C.N.PQuique Care team members present 1. Shira Hernandes [...] completed successfully: yes Complications: no apparent complications Monica Recio APRN, C.N.P. PROCEDURE/MINOR S URGICAL ORDERABLES Final Result * HPV with Genotyping, PCR, ThinPrep (06/22/2024 8:06 AM SECURITY SYSTEM ENGINEER) HPV with Genotyping, ThinPrep, PCR Negative Negative 06/23/2024 2:56 PM SECURITY SYSTEM ENGINEER ECLR Comment: Negative for high risk HPV by nucleic acid amplification. The following high risk HPV types were not detected: 16, 18, 31, 33, 35, 39, 45, 51, 52, 56, 58, 59, 66, and 68 This result does not rule out HPV in the patient, as the sensitivity of the test depends on the timing of the specimen collection and the quality of the specimen. Result should be correlated with patient's history, clinical presentation, and SIMPLEX OPERATOR cytology report. 06/22/2024 8:06 AM SECURITY SYSTEM ENGINEER 06/23/2024 10:03 AM SECURITY SYSTEM ENGINEER Natividad Carpenter APRN, C.N.P., [facility] GENERAL ORDERABLES Final Result Performing Organization Address City/[facility] Co de Phone Number [facility] [address] [place] [phone], [facility] ECLR [address] [place] [phone] * Chlamydia / Gonorrhoeae Amplified RNA (03/11/2022 12:01 PM CDT) Source Swab, Vagina 03/12/2022 12:35 PM CDT ECLR Chlamydia trachomatis amplified RNA Negative Negative 03/12/2022 12:35 PM CDT ECLR Source Swab, Vagina 03/12/2022 12:35 PM CDT ECLR Neisseria gonorrhoeae amplified RNA Negative Negative 03/12/2022 12:35 PM CDT ECLR Varies (Vagina) 03/11/2022 1 2:01 PM CDT 03/11/2022 3:28 PM CDT Natividad Carpenter APRN, C.N.P., [facility] GENERAL ORDERABLES Final Result Performing Organization Address [facility] Co de Phone Number [facility] [address] [place] [phone], [facility] ECLR [facility] in [address] [address] from Last 3 Months or Most Recently Relevant to Health Maintenance Insurance [facility] [place] [id number] [facility] [place] [id number] Advance Directives For more information, please contact: [phone] * Full Code (Latest Code Status on File) Date Activated Date Inactivated Comments 06/27/2024 7:03 AM 06/27/2024 3:34 PM Question Answer Comments Full Code: Discussed Care Teams Acting Section Chief Relationship Specialty Start Date End Date None Reported, Pcp PCP - General Family Medicine 02/05/23
[2024-11-05 12:13] LABS: Clue Cells No Clue Cells Seen (None Seen); Trichomonas No Trichomonas Seen (None Seen); Yeast No Yeast Seen (None Seen)
[2024-11-05 12:14] LABS: Bacteria Urine Few; RBC Urine 0-2 (0-2); Squamous Epithelial Cell Urine Few (None-Few)
--- NOTE | 2024-11-09 13:03 | ED.NURSE ---
Pt called inquiring about results of her urine culture. Pt was updated about her results and advised to complete her existing rx.
== END 2024-11-05 12:32 | disposition home or self-care (01) ==
PROVIDERS: Emergency Provider Emergency Medicine
DX: N39.0 Urinary tract infection, site not specified (principal)
CPT/HCPCS: 81001; 81513; 87210; 87481; 87661; 99283; 99284